=== PATIENT | female | born 1985 | race Caucasian/White ===

== ENCOUNTER → 2016-09-21 | Outpatient (CLI) | payer OTHER ==
[~2016-09-21] MED LIST: BCPILLS; PRED20TA PO
--- NOTE | 2016-09-22 12:44 | MAMMOGRAPHY REPORT ---
UNILATERAL LEFT DIGITAL DIAGNOSTIC MAMMOGRAM WITH CAD AND TARGETED LEFT ULTRASOUND: 09/21/2016 CLINICAL HISTORY: The patient reports a history of bilateral silicone implants. She notes a lump/wr inkle in the left breast for approximately 2 months, and notes her physician was concerned for ruptu re. TECHNIQUE: Current study was also evaluated with a Computer Aided Detection (CAD) system. COMPARISON: No prior exams were available for comparison. BREAST COMPOSITION: The tissue of the left breast is extremely dense, which lowers the sensitivity of mammography. FINDINGS: A subpectoral silicone implant is noted. A triangle marker pop the site of the palpabl e lump/wrinkle in the left 9:00 breast. At the site of the palpable lump there is a focal bulge in the implant, best seen on the MLO view. No free silicone is noted within the left breast or axillar y region. There are no suspicious masses, calcifications, or areas of architectural distortion note d in the left breast. Targeted ultrasound was performed of the area of the palpable lump pointed out by the patient, in th e left breast at 9:00. No suspicious masses or other suspicious sonographic abnormalities are evide nt. There are multiple folds seen within the left breast implant, with silicone seen between the ca psule and collapsed implant. Findings are most compatible with intracapsular implant rupture. No c lear evidence of free silicone is seen. Limited ultrasound was performed of the right breast at 3:0 0 for comparison purposes, which shows a normal implant without evidence of rupture. IMPRESSION: ACR BI-RADS CATEGORY 2: BENIGN, TARGETED ULTRASOUND ACR BI-RADS CATEGORY 2: BENIGN Findings compatible with intracapsular rupture of the left breast silicone implant. No free silicon e is seen within the breast. There is no mammographic or targeted sonographic evidence of malignancy. Recommend clinical follow- up. The patient has been verbally notified of the results. Approximately 10% of breast cancers are not detected with mammography. A negative mammographic repor t should not delay biopsy if a clinically suggestive mass is present. Evelyn Florian M.D. /:09/21/2016 16:27:52 [employer]: Zac RATLIFF)(Diane), [facility] letter sent: Normal /2 BI-RADS Code: ACR BI-RADS Category 2: Benign Ultrasound BI-RADS: ACR BI-RADS Category 2: Benign
== END | disposition home or self-care (01) ==
LOC: C.MAMM 10:21
PROVIDERS: ATTEND Surgery Plastic and Reconstructive Surgery
DX: T85.49XA Other mechanical complication of breast prosthesis and implant, initial encounter (principal); Y83.8 Other surgical procedures as the cause of abnormal reaction of the patient, or of later complication, without mention of misadventure at the time of the procedure

== ENCOUNTER → 2016-10-12 | Outpatient (CLI) | payer OTHER | END | disposition home or self-care (01) | LOC: C.PAPS 10:00 | PROVIDERS: ATTEND Obstetrics & Gynecology | DX: Z12.4 Encounter for screening for malignant neoplasm of cervix (principal); Z87.42 Personal history of other diseases of the female genital tract ==

== ENCOUNTER → 2016-10-12 | Outpatient (CLI) | payer OTHER ==
[2016-10-17 08:49] LABS: CHLAMYDIA TRACH RNA*** NOT DETECTED (NOT DETECTED); GC (NEIS GONORRHOEAE)RNA** NOT DETECTED (NOT DETECTED); TRICHOMONAS VAGINALIS RNA** NOT DETECTED (NOT DETECTED)
== END | disposition home or self-care (01) ==
LOC: C.LABSPEC 12:04
PROVIDERS: ATTEND Obstetrics & Gynecology
DX: Z12.4 Encounter for screening for malignant neoplasm of cervix (principal); Z86.19 Personal history of other infectious and parasitic diseases

== ENCOUNTER → 2016-11-22 | Outpatient (CLI) | payer OTHER ==
--- NOTE | 2016-11-22 11:11 | DIAGNOSTIC IMAGING REPORT ---
THYROID ULTRASOUND HISTORY: Thyroid nodule THYROID NODULE [id number] COMPARISON: None. FINDINGS: Right lobe: Maximum dimension 5.6 cm. Several sub-5 mm nodules. No evidence for dominant nodule. Left lobe: Maximum dimension 4.9 cm. Dominant slightly complex nodule measuring 1.4 x 1.0 cm. Isthmus: No nodules. IMPRESSION: Multinodular thyroid. the dominant nodule of the left thyroid should be considered for fine-needle aspiration Electronically signed by: Foster Lynne M.D. 11/22/2016 11:09 AM Dictated Date/Time: 11/22/2016 11:05 AM
== END | disposition home or self-care (01) ==
LOC: C.ULTR 10:15
PROVIDERS: ATTEND Family Medicine
DX: E04.1 Nontoxic single thyroid nodule (principal)

== ENCOUNTER → 2016-12-07 | Outpatient (CLI) | payer OTHER ==
--- NOTE | 2016-12-07 12:05 | DIAGNOSTIC IMAGING REPORT ---
ULTRASOUND-GUIDED LEFT LOBE THYROID NODULE FINE-NEEDLE ASPIRATION CLINICAL HISTORY: Complex left lobe thyroid nodule COMPARISON STUDY: 11/22/2016 FINDINGS: A timeout was performed. The risks of the procedure were explained the patient informed consent was obtained. The patient was prepped in sterile fashion. The skin was anesthetized with 1% lidocaine. Under ultrasound guidance, 2 passes into the nodular portion of the complex cystic left lobe nodule were performed utilizing a 25-gauge needle. Initial pathologic review indicates satisfactory material for diagnosis. There were no immediate complications. IMPRESSION: Successful ultrasound-guided fine-needle aspiration biopsy the complex left lobe thyroid nodule. Electronically signed by: Edgar Irwin M.D. 12/07/2016 12:03 PM Dictated Date/Time: 12/07/2016 12:02 PM
== END | disposition home or self-care (01) ==
LOC: C.ULTR 10:35
PROVIDERS: ATTEND Family Medicine
DX: E04.1 Nontoxic single thyroid nodule (principal); E06.3 Autoimmune thyroiditis

== ENCOUNTER → 2017-01-19 | Outpatient (CLI) | payer OTHER ==
[2017-01-19 18:42] LABS: THYROID STIMULATING HORMONE 0.773 uIu/ml (0.300-4.500)
[2017-01-23 10:09] LABS: THYROGLOBULIN 14.4 NG/ML (2.8-40.9)
== END | disposition home or self-care (01) ==
LOC: C.LAB 15:08
PROVIDERS: ATTEND Family Medicine
DX: E04.1 Nontoxic single thyroid nodule (principal)